=== PATIENT | male | born 2000 | race Caucasian/White ===

== ENCOUNTER 2024-04-08 21:32 | Emergency (ER) | payer OTHER ==
[~2024-04-08] VITALS: Ht 182.9 cm; Wt 165.0 kg
[2024-04-08 21:38] VITALS: PULSE 95; O2SAT 98
[2024-04-08 21:46] VITALS: BP 113/74; RESP 17; TEMP 97.2; O2SAT 77
== END 2024-04-08 22:44 | disposition home or self-care (01) ==
LOC: ER 21:32
DX: S43.004A Unspecified dislocation of right shoulder joint, initial encounter (principal); X58.XXXA Exposure to other specified factors, initial encounter; J45.909 Unspecified asthma, uncomplicated; Y92.89 Other specified places as the place of occurrence of the external cause; Y93.67 Activity, basketball; Y99.8 Other external cause status
CPT/HCPCS: 23650; 73030; 99284